=== PATIENT | female | born 1985 | race Caucasian/White ===

== ENCOUNTER 2017-12-31 19:47 | Inpatient (IN) | payer OTHER ==
[~2017-12-31] VITALS: Ht 162.6 cm; Wt 71.0 kg
[~2017-12-31 19:47] MED LIST: ACETAMINOPHN-T1 EACH PO; ATIVAN1 MG PO; BUSPAR15 MG PO; CLEOCIN150 MG PO; COGENTIN0.5 MG PO; HALDOL DECON50 MG/ML IM; NAPROSYN500 MG PO; NOHOMEMEDS; NORCO 5/3251 TABLET PO; RISPERDAL2 MG PO; RISPERIDONE M-0.5 MG PO; RISPERIDONE1 MG PO; ULTRAM50 MG PO; VALIUM2 MG PO
[2017-12-31 23:37] LABS: BASOPHIL (%) 0.5 % (0-1); BASOPHIL COUNT 0.1 K/uL (0-0.1); EOSINOPHIL (%) 1.1 % (0-5); EOSINOPHIL COUNT 0.1 K/uL (0-0.3); HEMATOCRIT 39.6 % (36.0-46.0); HEMOGLOBIN 13.5 G/DL (11.9-15.5); IMMATURE GRANULOCYTE (%) 0.2 % (0.0-0.7); LYMPHOCYTE (%) 29.6 % (15-42); LYMPHOCYTE COUNT 3.9 K/uL (1.0-2.8); MCH 29.6 PG (29.0-34.0); MCHC 34.1 G/DL (30.0-36.0); MCV 86.8 FL (83-99); MONOCYTE COUNT 1.1 K/uL (0-0.8); NEUTROPHIL (%) 60.6 % (45-76); PLATELET COUNT 342 K/uL (156-360); RBC DIS.WIDTH-CV 12.7 % (11.8-14.6); RBC DIS.WIDTH-SD 40.2 % (39-53); RED BLOOD COUNT 4.56 M/uL (3.80-5.20); WHITE BLOOD COUNT 13.2 K/uL (4.1-10.2)
[2017-12-31 23:51] LABS: ALBUMIN 4.2 g/dL (3.2-4.8); CHLORIDE 106 mEq/L (99-109); POTASSIUM 3.1 mEq/L (3.7-5.4); SODIUM 139 mEq/L (136-147)
[2017-12-31 23:54] LABS: GLUCOSE 96 mg/dL (70-99); TOTAL PROTEIN 6.7 g/dL (6.4-8.3)
[2017-12-31 23:55] LABS: TOTAL BILIRUBIN 0.5 mg/dL (0.0-1.0)
[2017-12-31 23:57] LABS: ALKALINE PHOSPHATASE 71 IU/L (3-129); CREATININE 0.8 mg/dL (0.6-1.3); GFR ESTIMATE (CALCULATED) > 59 mL/min/; SERUM ETHYL ALCOHOL < 10 mg/dL
[2017-12-31 23:58] LABS: UREA NITROGEN (BUN) 6 mg/dL (9-23)
[2017-12-31 23:59] LABS: AST (GOT) 13 IU/L (2-34)
[2018-01-01] LABS: ALT (GPT) 14 IU/L (3-49)
[2018-01-01 00:07] LABS: QUANTITATIVE HCG < 4.0 MIU/ML
[2018-01-01 01:51] VITALS: BP 134/84
[2018-01-01 02:16] LABS: AMPHETAMINE NEGATIVE (500 ng/mL); BARBITURATES NEGATIVE (200 ng/mL); BENZODIAZEPINES NEGATIVE (150 ng/mL); BUPRENORPHINE NEGATIVE (10 ng/mL); COCAINE NEGATIVE (150 ng/mL); METHADONE NEGATIVE (200 ng/mL); METHAMPHETAMINE NEGATIVE (500 ng/mL); OPIATES (MORPHINE) NEGATIVE (100 ng/mL); OXYCODONE NEGATIVE (100 ng/mL); PHENCYCLIDINE NEGATIVE (25 ng/mL); PROPOXYPHENE NEGATIVE (300 ng/mL); THC CANNABINOIDS NEGATIVE (50 ng/mL); TRICYCLIC ANTIDEPRESSANTS NEGATIVE (300 ng/mL)
[2018-01-01] MEDS ORDERED: ZOLOFT50 MG PO (07:24)
[2018-01-02 09:19] VITALS: BP 117/58
[2018-01-02 16:35] VITALS: BP 103/55
[2018-01-03 08:02] VITALS: BP 105/63
[2018-01-03 15:25] VITALS: BP 118/70
[2018-01-04 07:45] VITALS: BP 85/48
[2018-01-04 15:54] VITALS: BP 95/54
[2018-01-05 08:22] VITALS: BP 109/58
[2018-01-05 16:21] VITALS: BP 89/52
[2018-01-06 08:07] VITALS: BP 116/58
[2018-01-06 16:49] VITALS: BP 108/64
[2018-01-07 07:55] VITALS: BP 119/62
[2018-01-07 17:12] VITALS: BP 112/64
[2018-01-08 08:10] VITALS: BP 88/51
[2018-01-08 16:17] VITALS: BP 122/64
[2018-01-09 16:34] VITALS: BP 113/59
[2018-01-10 17:04] VITALS: BP 103/57
[2018-01-12 08:05] VITALS: BP 96/52
[2018-01-12 16:29] VITALS: BP 111/62
[2018-01-13 07:46] VITALS: BP 85/50
[2018-01-13] MEDS ORDERED: RISPERDAL2 MG PO (09:14)
[2018-01-13] MEDS ORDERED: RISPERDAL50 MG/2 ML IM (09:17)
== END 2018-01-13 12:05 | disposition home or self-care (01) | DRG 885 ==
LOC: EME → EDBD 19:47 → EME 19:47 → 1WEST 01-01 00:37 → EDOF 01-01 00:37 → 1WEST 01-01 00:37 → ENRESERV 01-01 00:57 → 1WEST 01-01 01:44
PROVIDERS: Emergency Medicine
DX: F20.9 Schizophrenia, unspecified (principal); F60.9 Personality disorder, unspecified; R45.851 Suicidal ideations; F31.9 Bipolar disorder, unspecified; E11.9 Type 2 diabetes mellitus without complications; F17.200 Nicotine dependence, unspecified, uncomplicated; Z81.8 Family history of other mental and behavioral disorders; Z88.0 Allergy status to penicillin; Z91.14 Patient's other noncompliance with medication regimen
CPT/HCPCS: 80053; 84702; 85025; 90837; 99281; 99285; G0480; J2794